=== PATIENT | female | born 1950 | race Caucasian/White ===

== ENCOUNTER 2021-05-29 00:31 | Day surgery (SDC) | payer MEDICARE, SELFPAY ==
[2021-05-17 14:55] VITALS: BMI 28.3
[2021-05-23 14:38] VITALS: BMI 28.3
[2021-05-29 11:46] VITALS: BP 138/85; PULSE 93; RESP 16; TEMP 36.6; O2SAT 100
--- NOTE | 2021-05-29 11:51 | P.PNAN_ITS ---
Anes - Initial Pre Proc Eval Procedure: Operation Date: 05/29/21 13:30 Proposed Procedures p Esophagogastroduodenoscopy & Colonoscopy - Willi Kasper MD Date/Time: 05/29/21 11:51 Surgeon: Wlili Kasper MD Pre Op Diagnosis: BRANDY Patient Data Age: 71 Gender: F Height: 1.8 m Weight: 92.5 kg Last Vital Signs Temp 36.6 C 05/29/21 11:46 Pulse 93 05/29/21 11:46 Resp 16 05/29/21 11:46 BP 138/85 05/29/21 11:46 Pulse Ox 100 05/29/21 11:46 Allergies Allergy/AdvReac Type Severity Reaction Status Date / Time No Known Allergies Allergy Verified 05/29/21 11:44 Home Medications Medication Instructions Recorded Confirmed Type Aspir-81 81 mg PO DAILY 05/17/21 05/29/21 History escitalopram oxalate 20 mg PO DAILY 05/17/21 05/29/21 History pantoprazole 40 mg PO DAILY 05/17/21 05/29/21 History propranolol 120 mg PO DAILY 05/17/21 05/29/21 History Patient hx anesthesia problems: none Family hx anesthesia problems: none Results Review: All pre-operative results and documents have been reviewed as part of the pre-operative evaluation. [facility] Past Medical History Medical History (Updated 05/29/21 @ 07:47 by Jimmy Santana DO) Anemia Depression Hyperlipidemia Social History Social History Smoking packs per day: 0.5 Smoking cigarettes per day: 10.0 Years smoked: 20 Smoking pack-years: 10.00 Smoking status: Former smoker Tobacco type: cigarettes Alcohol intake: current Drinks per week: 2 Living arrangements: with friend(s) Spiritual care concerns: No Anes - Eval Final PreProcedure Day of Procedure 05/29/21 11:51 Patient weight: overweight Heart: regular rate and rhythm Lungs: clear to auscultation and normal air movement Airway: Mallampati scale class II Neurological: alert and oriented Last oral intake: >/= 8 hours ASA classification: II Emergent: no Anesthetic plan: proceed Anesthesia type and monitoring: general GIVS and standard monitoring Results Review: All pre-operative results and documents have been reviewed as part of the pre-operative evaluation. Informed Consent: The patient's anesthetic plan and its attendant risks and benefits were discussed with the patient/family/POA. Questions were solicited and answers provided to the satisfaction of the patient/family/POA.
[2021-05-29] MEDS: LACTATED RINGERS 1,000 ML 150 ML IV CONT (11:56)
[2021-05-29] MEDS: BENZOCAINE (*SP) 60 ML SPRAY CAN (HURRICAINE) 1 SPRAY MUCOUS MEM (12:06)
--- NOTE | 2021-05-29 12:11 | WPDGICN ---
Assessment and Plan Assessment and plan (1) BRANDY (iron deficiency anemia): Code(s): D50.9 - Iron deficiency anemia, unspecified Status: Acute Assessment and Plan: Patient with newly identified iron deficiency anemia. Etiology unclear. Plan is for both colonoscopy an EGD to assess more thoroughly. Further recommendations will be given after endoscopy. (2) Occult blood in stools: Code(s): R19.5 - Other fecal abnormalities Status: Acute Assessment and Plan: Occult blood in stool suggest iron deficient anemia is coming from intestinal blood loss. Further recommendations will be given after endoscopy. GI Consult Note Consult date/time: 05/29/21 12:11 HPI: Britney Raymond is a 71 year old female Presents for GI endoscopy. Patient has a history of anemia with iron deficient indices identified on routine screening test. Subsequent stool was found to be occult positive for blood. Patient denies any obvious blood in her stools. She denies any abdominal pain. She does report occasional nocturnal heartburn that is relieved with Tums. This occurs intermittently over last 3 years. Patient denies any weight loss. She has had no bleeding. No blood in her urine. No bruises. No nose bleeds. Her family history is noncontributory. She does report many years ago had a colon polyp. Her family history is noncontributory. Review of Systems Review of Systems: All systems reviewed & are unremarkable except as noted in HPI and below PMFSH Past Medical History Medical History (Updated 05/29/21 @ 12:13 by Willi Kasper MD) Anemia Depression Hyperlipidemia Social History Social History Smoking packs per day: 0.5 Smoking cigarettes per day: 10.0 Years smoked: 20 Smoking pack-years: 10.00 Smoking status: Former smoker Tobacco type: cigarettes Alcohol intake: current Drinks per week: 2 Living arrangements: with friend(s) Spiritual care concerns: No Meds Home Medications and Allergies Home Medications Medication Instructions Recorded Confirmed Type Aspir-81 81 mg PO DAILY 05/17/21 05/29/21 History escitalopram oxalate 20 mg PO DAILY 05/17/21 05/29/21 History pantoprazole 40 mg PO DAILY 05/17/21 05/29/21 History propranolol 120 mg PO DAILY 05/17/21 05/29/21 History Allergies Allergy/AdvReac Type Severity Reaction Status Date / Time No Known Allergies Allergy Verified 05/29/21 11:44 Vital Signs Vital Signs - 24 hr 05/29/21 11:46 Temperature 97.9 F Pulse Rate 93 Respiratory Rate 16 Blood Pressure 138/85 Pulse Oximetry 100 Exam Narrative: Physical exam reveals patient be alert. Vital signs stable. HEENT exam is unremarkable. Patient is anicteric. Lungs are clear to auscultation and percussion. Heart is without murmur or extra sounds. Abdominal exam bowel sounds are present soft nontender with no organomegaly. Digital external rectal exam is normal.
--- NOTE | 2021-05-29 12:25 | SUR.OPER ---
EGD start 1207 end 1210, Colonoscopy start 1216 end 1224
[2021-05-29 12:28] VITALS: BP 103/61; PULSE 68; RESP 16; O2SAT 98
[2021-05-29 12:38] VITALS: BP 113/70; PULSE 73; RESP 27; O2SAT 100
[2021-05-29 12:48] VITALS: BP 125/79; PULSE 66; RESP 18; O2SAT 100
== END 2021-05-29 12:58 | disposition home or self-care (01) ==
PROVIDERS: PCP Internal Medicine; Visit Provider Internal Medicine Gastroenterology
PROC: 0DJ08ZZ Inspection of Upper Intestinal Tract, Via Natural or Artificial Opening Endoscopic (ICD-10-PCS; CPT 43235; principal; 2021-05-29 13:30)
DX: K92.1 Melena (principal); K64.8 Other hemorrhoids; K57.30 Diverticulosis of large intestine without perforation or abscess without bleeding; D50.9 Iron deficiency anemia, unspecified; E78.5 Hyperlipidemia, unspecified; F32.9 Major depressive disorder, single episode, unspecified; Z87.891 Personal history of nicotine dependence
CPT/HCPCS: 45378; 43239; 88305; J2704; J7120

== ENCOUNTER 2021-06-14 07:45 | Outpatient (CLI) | payer MEDICARE, SELFPAY ==
--- NOTE | ~2021-06-14 | XR_ITS ---
EXAMINATION: XR small bowel follow through DATE: 06/14/2021 09:43 INDICATION: Iron deficiency anemia TECHNIQUE: Research Chemist radiograph(s) of the abdomen was obtained. Oral contrast was administered, and sequ ential radiographs of the abdomen were obtained until oral contrast was noted to be in the proximal c olon. Spot fluoroscopic images of the small bowel were obtained. Fluoroscopy exposure time was 1.4 mi nutes. The DAP for this procedure was 11.966 Gycm2. COMPARISON: None. FINDINGS: Research Chemist radiograph is unremarkable. There are 20 degrees of lumbar levoscoliosis. Transit irina e from the stomach to proximal colon was approximately one hour. There is normal caliber and mucosal fold pattern throughout the small bowel. Terminal ileum is normal. No tethering or abnormal mass effe ct observed upon the small bowel with real-time fluoroscopy. IMPRESSION: 1. Unremarkable small bowel follow-through. Reviewed, dictated and finalized at location A. LE APPLICATION ARCHITECT
== END 2021-06-14 07:46 | disposition home or self-care (01) ==
LOC: ANHIMG 07:49
PROVIDERS: PCP Internal Medicine; Visit Provider Internal Medicine Gastroenterology
DX: D50.9 Iron deficiency anemia, unspecified (principal); R19.5 Other fecal abnormalities
CPT/HCPCS: 74250

== ENCOUNTER 2021-06-21 00:28 | Day surgery (SDC) | payer MEDICARE, SELFPAY ==
--- NOTE | 2021-06-14 15:28 | PC.NURSE ---
Report to the Outpatient Waiting Room, entrance under the green pavilion located off [facility], at time _1000 on date 06/21/21 . OR Time: _1200 . - You and your visitor will be asked a series of questions to screen for COVID 19 for your protection. - A mask is required within the hospital. Preoperative COVID Testing Requirements: No COVID Test needed if: (proof is required; if not received patient will have Rapid Test prior to entry) - Patient has received COVID Vaccine at least 14 days prior to procedure date or - Patient has positive COVID test result within last 90 days of surgery date. COVID Test needed if above criteria is not met If not COVID vaccinated a COVID test must be conducted within 72 hours of surgery and patient is asked to isolate self from time of testing until procedure. You will go to the [facility] for your COVID testing. The [facility] is located at the corner of [address] [facility]. You will only be called if COVID results are positive and your surgeon may reschedule your elective surgery date. Patients may have clear liquids (water, carbonated beverages, clear teas, apple juice) until 3 hours prior to surgery with a maximum of 20 ounces. - No food from midnight until time of surgery - Infants may have breast milk until 4 hours before surgery, formula 6 hours prior to surgery. - Children will be allowed to drink immediately following surgery. If applicable, please bring a bottle or sippy cup to assist with drinking. Juice, water, soda, and popsicles are readily available. For infants on formula, please bring formula the day of surgery. Pacifiers are allowed. Take the following medications with a SIP of water the morning of surgery: _PROPRANOLOL,ESCITALOPRAM Medications to discontinue per physician ____ASPIRIN AND NAPROXEN PER DR MCMANUS Date to take last dose Please no make-up, nail australian, hairspray, perfume, deodorant, or body powder the day of surgery. No jewelry (including any body piercings) or valuables the day of surgery, leave them at home. Please take a shower or bath the night before, or the morning of, surgery with an antibacterial soap. Wear comfortable, loose fitting clothing. Children are encouraged to wear pajamas. - Jewelry must be removed prior to entering the operating room. Rings and piercings that are not removed may be cut off. - The hospital will not accept responsibility for valuables. - Please leave all valuables, including medications, at home the day of surgery. If you are going home after surgery, a licensed cross country truck driver must drive you home. - NO public transportation without another adult. - We recommend that an adult stay with you for 24 hours following discharge. - We also recommend that you do not drive, make important decision, drink alcoholic beverages, or take any drugs that were not prescribed by your health care provider for at least 24 hours after your discharge time. For Pediatric surgeries, we recommend two adults accompany the child home (only one inside the building at this time). One visitor will be allowed to accompany the patient into the hospital. Patients visitor will be instructed to remain with patient at all times or leave the building. We will allow the visitor to come back to the postoperative area when patient is ready. Follow any additional instructions given to you from your surgeon. Telephone instructions given to _PATIENT and asked if any additional questions and then verbalized understanding. Patient advised to call surgeon office or pre surgery nurse liaison [phone] if any additional questions.
[2021-06-14 15:30] VITALS: BMI 28.5
[2021-06-21 10:09] VITALS: BMI 28.7
[2021-06-21 10:10] VITALS: BP 153/80; PULSE 62; RESP 20; TEMP 36.7; O2SAT 100
--- NOTE | 2021-06-21 10:23 | P.PNAN_ITS ---
Anes - Initial Pre Proc Eval Procedure: Operation Date: 06/21/21 12:00 Proposed Procedures p Excisional Biopsy of Sebaceous Cyst Posterior Neck - Rosa Box MD Date/Time: 06/21/21 10:23 Surgeon: Rosa Box MD Pre Op Diagnosis: Sebaceous Cyst Posterior Neck Patient Data Age: 71 Gender: F Height: 1.83 m Weight: 96.1 kg Last Vital Signs Temp 36.7 C 06/21/21 10:10 Pulse 62 06/21/21 10:10 Resp 20 06/21/21 10:10 BP 153/80 H 06/21/21 10:10 Pulse Ox 100 06/21/21 10:10 Allergies Allergy/AdvReac Type Severity Reaction Status Date / Time No Known Allergies Allergy Verified 06/21/21 09:58 Home Medications Medication Instructions Recorded Confirmed Type Aspir-81 81 mg PO DAILY 05/17/21 06/21/21 History escitalopram oxalate 20 mg PO DAILY 05/17/21 06/21/21 History propranolol 120 mg PO DAILY 05/17/21 06/21/21 History ferrous sulfate 325 mg (65 mg 325 mg PO BID #60 tablet 05/29/21 06/21/21 Rx iron) tablet naproxen 500 mg PO DAILY 06/14/21 06/21/21 History Patient hx anesthesia problems: none Family hx anesthesia problems: none Results Review: All pre-operative results and documents have been reviewed as part of the pre-operative evaluation. [facility] Past Medical History Medical History (Updated 06/21/21 @ 10:25 by Jimmy Santana DO) Anemia Depression Essential tremor Hyperlipidemia Surgical History Surgical History Hx of appendectomy Family History Family History Daughter Lupus Father Heart disease Cancer Sibling Heart attack Social History Social History Smoking packs per day: 0.5 Smoking cigarettes per day: 10.0 Years smoked: 10 Smoking pack-years: 5.00 Smoking status: Former smoker Tobacco type: cigarettes Smoking end date: 04/22/99 Alcohol intake: current Drinks per week: 2 Substance use type: does not use Living arrangements: other 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 Informed Consent: The patient's anesthetic plan and its attendant risks and benefits were discussed with the patient/family/POA. Questions were solicited and answers provided to the satisfaction of the patient/family/POA.
[2021-06-21 10:26] LABS: Hematocrit 38.3 % (37.0-47.0); Hemoglobin 11.6 g/dL (12.0-15.0)
[2021-06-21] MEDS: LACTATED RINGERS 1,000 ML 30 ML IV CONT (10:33)
--- NOTE | 2021-06-21 11:18 | SUR.PREOP ---
dr hu states no need to shave pt
--- NOTE | 2021-06-21 11:40 | WPDHPUPDATE1 ---
History and Physical Update Update Date/Time: 06/21/21 11:40 History and Physical has been reviewed, including an updated exam of the patient. There are NO changes in the patient's condition. Risks, benefits, and alternatives have been discussed and questions answered. Patient agrees to proceed with procedure.
[2021-06-21] MEDS: ceFAZolin 2 GM/D5W 50 ML 2 GM/50 ML BAG IVPB (11:44)
[2021-06-21] MEDS: BUPIVACAINE/EPINEPHRINE 0.25% 10 ML VIAL 20 ML INFILTRATE (12:02)
[2021-06-21 12:26] VITALS: BP 139/72; PULSE 62; RESP 14; O2SAT 100
--- NOTE | 2021-06-21 12:27 | W.PM.PROC2 ---
Procedure Note - Detailed Date of Procedure 06/21/21 Pre-op Diagnosis Sebaceous Cyst Posterior Neck Post-op Diagnosis same Procedure Performed Excisional biopsy posterior neck cyst measuring approximately 3 x 3 cm Surgeon Rosa Box MD Anesthesia MAC and local Indications 71-year-old female presenting to the office with a enlarging posterior neck cyst Findings 3 x 3 cm posterior neck cyst likely sebaceous cyst Description of Procedure The patient was taken to the operating room and placed in the lateral position. After adequate induction of MAC anesthesia, the patient was prepped and draped in the normal sterile fashion. A time-out was then done to verify the patient's identity, as well as the procedure being performed. I began by localizing the area in and around the cyst. The area measured approximately 3 x 3 cm. I then made an elliptical incision over the cyst taking a piece of dermis over the cyst. The cyst was noted to be contained within the subcutaneous tissue. There was some noted sebaceous material within the cyst. Upon dissection of the cyst, there was noted to be areas of small perforations in the cyst wall. The cyst was then removed in full and will be sent to pathology for further review. I then gained hemostasis in the cavity with the Bovie cautery. I then washed out the cavity, noting no signs or symptoms of infection. We then closed the subcutaneous tissue with 3-0 Vicryl suture. The skin was then closed with 4-0 Monocryl subcuticular suture. The wound was then covered with Dermabond. The patient tolerated the procedure well and was alert and awake in the operating room postoperatively. She will be sent to the recovery room in stable condition. Estimated Blood Loss 5 Drains No Packing No Pathology yes Complications No immediate complications Condition stable Disposition PACU
[2021-06-21 12:50] VITALS: BP 145/73; PULSE 51; RESP 16; O2SAT 98
[2021-06-21 13:15] VITALS: BP 149/77; PULSE 52; RESP 16
== END 2021-06-21 13:35 | disposition home or self-care (01) ==
PROVIDERS: PCP Internal Medicine; Visit Provider Surgery
PROC: (CPT 11426; principal; 2021-06-21 12:00)
DX: L72.3 Sebaceous cyst (principal); D64.9 Anemia, unspecified; E78.5 Hyperlipidemia, unspecified; F32.9 Major depressive disorder, single episode, unspecified; G25.0 Essential tremor; Z87.891 Personal history of nicotine dependence
CPT/HCPCS: 11426; 12042; 36415; 85014; 85018; 88304; 88305; J0690; J2250; J2405; J2704; J3010; J7120

== ENCOUNTER 2023-02-25 07:00 | Outpatient (NON) | payer MEDICARE, SELFPAY | END 2023-02-25 07:01 | disposition home or self-care (01) | LOC: ANHLAB 02-27 12:44 | PROVIDERS: PCP Family Medicine; Visit Provider Nurse Practitioner | DX: C44.629 Squamous cell carcinoma of skin of left upper limb, including shoulder (principal) | CPT/HCPCS: 88305 ==

== ENCOUNTER 2023-03-27 11:52 | Outpatient (NON) | payer MEDICARE, SELFPAY | END 2023-03-27 11:53 | disposition home or self-care (01) | PROVIDERS: PCP Family Medicine; Visit Provider Nurse Practitioner | DX: C44.320 Squamous cell carcinoma of skin of unspecified parts of face (principal); L82.1 Other seborrheic keratosis | CPT/HCPCS: 88305 ==

== ENCOUNTER 2024-01-24 14:35 | Outpatient (CLI) | payer MEDICARE, SELFPAY ==
[2024-01-24 15:05] LABS: CRP < 0.5 mg/dL (<1.0)
== END 2024-01-24 14:36 | disposition home or self-care (01) ==
PROVIDERS: PCP Physician Assistant Medical; Visit Provider Nurse Practitioner Family
DX: R19.7 Diarrhea, unspecified (principal); R11.10 Vomiting, unspecified; R10.11 Right upper quadrant pain
CPT/HCPCS: 36415; 86140

== ENCOUNTER 2024-01-25 10:04 | Outpatient (CLI) | payer MEDICARE, SELFPAY ==
[2024-01-29 03:49] LABS: Immunoglobulin A 181 mg/dL (70-320); TTG IGA AB <1.0 U/mL
[2024-01-31 18:13] LABS: Calprotectin, Stool 68 mcg/g
[2024-02-04 01:03] LABS: Pancreatic Elastase, Stool >500 mcg/g
== END 2024-01-25 10:05 | disposition home or self-care (01) ==
PROVIDERS: PCP Physician Assistant Medical; Visit Provider Nurse Practitioner Family
DX: R19.7 Diarrhea, unspecified (principal); R11.10 Vomiting, unspecified; R10.11 Right upper quadrant pain
CPT/HCPCS: 36415; 82653; 82784; 83993; 86364

== ENCOUNTER 2024-02-07 08:38 | Outpatient (CLI) | payer MEDICARE, SELFPAY ==
--- NOTE | ~2024-02-07 | US_ITS ---
US abdomen limited INDICATION: Right upper quadrant pain PROCEDURE: Realtime right upper abdominal ultrasound. COMPARISON: No prior studies for comparison. FINDINGS: The pancreas is normal without focal mass or pancreatic ductal dilation. Liver echotexture is normal without focal mass or intrahepatic biliary dilatation. There is normal directional flow i n the portal vein. The gallbladder is normal without stones, gallbladder wall thickening or pericholecystic fluid. Comm on bile duct measures 5 mm. No sonographic Urias's sign. IMPRESSION: 1: Normal limited abdominal ultrasound. Reviewed, dictated and finalized at location B.
== END 2024-02-07 08:39 | disposition home or self-care (01) ==
PROVIDERS: PCP Physician Assistant Medical; Visit Provider Nurse Practitioner Family
DX: R10.11 Right upper quadrant pain (principal); R11.10 Vomiting, unspecified; R19.7 Diarrhea, unspecified
CPT/HCPCS: 76705

== ENCOUNTER 2024-02-13 08:33 | Outpatient (CLI) | payer MEDICARE, SELFPAY ==
--- NOTE | ~2024-02-13 | NM_ITS ---
EXAMINATION: NM hepatobiliary wo pharm DATE: 02/13/2024 12:26 INDICATION: Right upper quadrant abdominal pain. COMPARISON: Ultrasound 02/07/2024 TECHNIQUE: 5 mCi Tc-99m mebrofenin (Choletec) was administered intravenously. Scintigraphic images o f the abdomen were obtained for one hour. Then, the patient drank 8 oz Ensure, and imaging was contin ued for 60 minutes. FINDINGS: There is normal clearance of radiotracer from the blood pool. There is homogeneous tracer u ptake by the liver. Activity progresses to the bowel and gallbladder. Gallbladder ejection fraction (GBEF) was 65%. Note that with this technique, normal GBEF >= 33%. IMPRESSION: 1. Normal hepatobiliary scintigraphy. Reviewed, dictated and finalized at location A.
== END 2024-02-13 08:34 | disposition home or self-care (01) ==
PROVIDERS: PCP Physician Assistant Medical; Visit Provider Nurse Practitioner Family
DX: R10.11 Right upper quadrant pain (principal); R11.11 Vomiting without nausea
CPT/HCPCS: 78226; A9537

== ENCOUNTER 2025-02-01 10:35 | Outpatient (CLI) | payer MEDICARE, SELFPAY ==
--- NOTE | ~2025-02-01 | US_ITS ---
ULTRASOUND ABDOMEN LIMITED (RIGHT UPPER QUADRANT) Clinical History: elevated liver enzymes Comparison: Right upper quadrant ultrasound 02/07/2024 HIDA scan and 10/08/2023 Technique: Right upper quadrant sonography Findings: Liver: Normal size. Echogenic. No intrahepatic biliary ductal dilatation. Normal hepatopedal flow main portal vein. Common Duct: Normal caliber. 5 mm. Gallbladder: No stones. No wall thickening. No pericholecystic fluid. Pancreas: Unremarkable. Right kidney: Unremarkable but only a single image. Retrohepatic IVC: Unremarkable. IMPRESSION: 1. No acute findings. Reviewed, dictated and finalized at location R. IMPRESSION: 1. No acute findings.
--- OUTSIDE RECORDS SUMMARY | 2025-02-01 11:46 | XMS_ITS | Encounter Summary ---
Author Organization [facility] Address [address] [place] [address] Care Team Providers Care Hydroelectric Plant Maintainer Name Role Phone Jose Guadalupe Wu MD Primary Care Provider [phone] Encounter Details Date Type Department Care Team (Latest Contact Info) Description 10/10/2006 Outpatient Historical [facility] Jose Guadalupe English MD [address] [facility] [address] [place] [id number] Abnormal Mammogram, Unspecified (Primary Dx) Social History Tobacco Use Types Packs/Day Years Used Date Smoking Tobacco: Never Assessed Comments Unknown Sex and Gender Information Value Date Recorded Sex Assigned at Not on file 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
--- OUTSIDE RECORDS SUMMARY | 2025-02-01 11:46 | XMS_ITS | Encounter Summary ---
Author Organization [facility] Address [address] [place] [address] Care Team Providers Care Internal Control Specialist Name Role Phone Jose Guadalupe Wu MD Primary Care Provider [phone] Encounter Details Date Type Department Care Team (Latest Contact Info) Description 10/31/2005 Outpatient Historical HIS [facility] Adame, Adalberto Zabala MD [address] [place] [address] [address] [place]O [place]ILA [phone] Other Specified Disorder of Breast (Primary Dx) Social History Tobacco Use Types Packs/Day Years Used Date Smoking Tobacco: Never Assessed Comments Unknown Sex and Gender Information Value Date Recorded Sex Assigned at Not on file 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
--- OUTSIDE RECORDS SUMMARY | 2025-02-01 11:46 | XMS_ITS | Encounter Summary ---
Author Organization [facility] Address [address] [place] [address] Care Team Providers Care Ornament Stapler Name Role Phone Jose Guadalupe Jones MD Primary Care Provider [phone] Encounter Details Date Type Department Care Team (Latest Contact Info) Description 11/30/2008 Outpatient Historical [facility] Jose Guadalupe English MD [facility] 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 [address] [place], [place] [address] Admit Date: 11/30/2008 BRITNEY LARA Sex: F Admit Prov: JOSE GUADALUPE JONES Date: 1950 Primary Care Prov: JOSE GUADALUPE JONES CMRN: [id number] Room: [facility] SSN: [id number] IMAGING SERVICES Ordering Prov: JOSE GUADALUPE JONES Accession Number: [id number] Interpretation BILATERAL FULL FIELD DIGITAL DIAGNOSTIC MAMMOGRAMS WITH COMPUTER AIDED DETECTION RIGHT BREAST ULTRASOUND DATE: 11/30/2008 HISTORY: Fibrocystic changes. TECHNIQUE: Bilateral full field digital diagnostic mammograms were obtained. CAD was utilized. Comparison is made with previous studies dated October 2007, September 2006, and September 2003. BREAST COMPOSITION: Scattered fibroglandular densities. FINDINGS: Within the inner aspect of the right breast, a 7 mm partially circumscribed, partially obscured mass is identified. An ultrasound of this is recommended. No other dominant masses, areas of asymmetry, or suspicious clustered microcalcifications are identified within either breast. The CAD system detects no other significant abnormalities. Right breast ultrasound was performed. At approximately the 2:00 position, an anechoic lesion is identified which measures 6 x 6 mm in size. This does have slightly irregular margins and appears to disrupt a linear area of connective tissue. For this reason and due to the fact that it is within the inner aspect of the right breast, an ultrasound-guided core biopsy is recommended. OVERALL ASSESSMENT: BI-RADS Category: 4A. Suspicious findings, low suspicion. RECOMMENDATION: It is recommended the patient have an ultrasound-guided core biopsy of the mass within the medial aspect of the right breast. Dictated by: FABBY SHEEHAN Electronically signed by: FABBY SHEEHAN 11/30/2008 16:52 Transcribed: 11/30/2008 13:55 DKT Procedure Note Fabby Sheehan - 11/30/2008 [facility] [address] [place], [place] [address] Admit Date: 11/30/2008 BRITNEY LARA Sex: F Admit Prov: JOSE GUADALUPE JONES Date:1950 Primary Care Prov: JOSE GUADALUPE JONES CMRN: [id number] Room: [facility] SSN: [id number] IMAGING SERVICES Ordering Prov: JOSE GUADALUPE JONES Interpretation BILATERAL FULL FIELD DIGITAL DIAGNOSTIC MAMMOGRAMS WITH COMPUTERAIDED DETECTION RIGHT BREAST ULTRASOUND DATE: 11/30/2008 HISTORY: Fibrocystic changes. TECHNIQUE: Bilateral full field digital diagnostic mammograms were obtained. CAD was utilized. Comparison is made with previous studiesdated October 2007, September 2006, and September 2003. BREAST COMPOSITION: Scattered fibroglandular densities. FINDINGS: Within the inner aspect of the right breast, a 7 mmpartially circumscribed, partially obscured mass is identified. An ultrasoundof this is recommended. No other dominant masses, areas of asymmetry, orsuspicious clustered microcalcifications are identified within either breast.The CAD system detects no other significant abnormalities. Right breast ultrasound was performed. At approximately the 2:00position, an anechoic lesion is identified which measures 6 x 6 mm in size.This does have slightly irregular margins and appears to disrupt a linear areaof connective tissue. For this reason and due to the fact that it iswithin the inner aspect of the right breast, an ultrasound-guided corebiopsy is recommended. OVERALL ASSESSMENT: BI-RADS Category: 4A. Suspicious findings, low suspicion. RECOMMENDATION: It is recommended the patient have anultrasound-guided core biopsy of the mass within the medial aspect of the rightbreast. Dictated by: FABBY SHEEHAN Electronically signed by: FABBY SHEEHAN 11/30/2008 16:52 Transcribed: 11/30/2008 13:55 DKT us Jose Guadalupe Jones MD ORDERABLES Final Result * MAMMO DIGITAL DIAG BILAT (11/30/2008 9:56 AM CDT) Anatomical Region Laterality Modality Breast Bilateral Other 11/30/2008 9:56 AM CDT Narrative 11/30/2008 4:54 PM CDT [address] [address] Admit Date: 11/30/2008 BRITNEY LARA Sex: F Admit Prov: JOSE GUADALUPE JONES Date: 1950 Primary Care Prov: JOSE GUADALUPE JONES CMRN: [id number] Room: [facility] SSN: [id number] IMAGING SERVICES Ordering Prov: JOSE GUADALUPE JONES Accession Number: [id number] Interpretation BILATERAL FULL FIELD DIGITAL DIAGNOSTIC MAMMOGRAMS WITH COMPUTER AIDED DETECTION RIGHT BREAST ULTRASOUND DATE: 11/30/2008 HISTORY: Fibrocystic changes. TECHNIQUE: Bilateral full field digital diagnostic mammograms were obtained. CAD was utilized. Comparison is made with previous studies dated October 2007, September 2006, and September 2003. BREAST COMPOSITION: Scattered fibroglandular densities. FINDINGS: Within the inner aspect of the right breast, a 7 mm partially circumscribed, partially obscured mass is identified. An ultrasound of this is recommended. No other dominant masses, areas of asymmetry, or suspicious clustered microcalcifications are identified within either breast. The CAD system detects no other significant abnormalities. Right breast ultrasound was performed. At approximately the 2:00 position, an anechoic lesion is identified which measures 6 x 6 mm in size. This does have slightly irregular margins and appears to disrupt a linear area of connective tissue. For this reason and due to the fact that it is within the inner aspect of the right breast, an ultrasound-guided core biopsy is recommended. OVERALL ASSESSMENT: BI-RADS Category: 4A. Suspicious findings, low suspicion. RECOMMENDATION: It is recommended the patient have an ultrasound-guided core biopsy of the mass within the medial aspect of the right breast. Assessment BIRADS: 4A-Suspicious abnormality, biopsy should be considered- Low suspicion Recommendation: Biopsy should be considered Dictated by: FABBY SHEEHAN Electronically signed by: FABBY SHEEHAN 11/30/2008 16:52 Transcribed: 11/30/2008 13:54 DKT Procedure Note Fabby Sheehan - 11/30/[address] [address] Admit Date: 11/30/2008 BRITNEY LARA Sex: F Admit Prov: JOSE GUADALUPE JONES Date:1950 Primary Care Prov: JOSE GUADALUPE JONES CMRN: [id number] Room: [facility] SSN: [id number] IMAGING SERVICES Ordering Prov: JOSE GUADALUPE JONES Interpretation BILATERAL FULL FIELD DIGITAL DIAGNOSTIC MAMMOGRAMS WITH COMPUTERAIDED DETECTION RIGHT BREAST ULTRASOUND DATE: 11/30/2008 HISTORY: Fibrocystic changes. TECHNIQUE: Bilateral full field digital diagnostic mammograms were obtained. CAD was utilized. Comparison is made with previous studiesdated October 2007, September 2006, and September 2003. BREAST COMPOSITION: Scattered fibroglandular densities. FINDINGS: Within the inner aspect of the right breast, a 7 mmpartially circumscribed, partially obscured mass is identified. An ultrasoundof this is recommended. No other dominant masses, areas of asymmetry, orsuspicious clustered microcalcifications are identified within either breast.The CAD system detects no other significant abnormalities. Right breast ultrasound was performed. At approximately the 2:00position, an anechoic lesion is identified which measures 6 x 6 mm in size.This does have slightly irregular margins and appears to disrupt a linear areaof connective tissue. For this reason and due to the fact that it iswithin the inner aspect of the right breast, an ultrasound-guided corebiopsy is recommended. OVERALL ASSESSMENT: BI-RADS Category: 4A. Suspicious findings, low suspicion. RECOMMENDATION: It is recommended the patient have anultrasound-guided core biopsy of the mass within the medial aspect of the rightbreast. Assessment BIRADS: 4A-Suspicious abnormality, biopsy should beconsidered- Low suspicion Recommendation: Biopsy should be considered Dictated by: FABBY SHEEHAN Electronically signed by: FABBY SHEEHAN 11/30/2008 16:52 Transcribed: 11/30/2008 13:54 DKT us Jose Guadalupe Jones MD MAMMO ORDERABLES Final Result documented in this encounter Visit Diagnoses Diagnosis Other screening mammogram Abnormal mammogram, unspecified documented in this encounter Care Teams Ornament Stapler Relationship Specialty Start Date End Date Jose Guadalupe Jones MD [address] [place] [phone] PCP - General 10/31/05 02/27/22 documented as of this encounter
--- OUTSIDE RECORDS SUMMARY | 2025-02-01 11:46 | XMS_ITS | Encounter Summary ---
Author Organization [facility] Address [address] [place] [address] Care Team Providers Care Brim And Crown Presser Name Role Phone Jose Guadalupe Jones MD Primary Care Provider [phone] Encounter Details Date Type Department Care Team (Latest Contact Info) Description 10/27/2007 Outpatient Historical [facility] Jose Guadalupe English MD [facility] [address] [place] [phone] Abnormal Mammogram, Unspecified Social History Tobacco Use Types Packs/Day Years Used Date Smoking Tobacco: Never Assessed Comments Unknown Sex and Gender Information Value Date Recorded Sex Assigned at Not on file 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 Gender Identity Not on file Sexual Orientation Not on file documented as of this encounter Plan of Treatment Not on file documented as of this encounter Procedures Procedure Name Priority Date/Time Associated Diagnosis Comments MAMMO DIAGNOSTIC BILATERAL W OR WO CAD Routine 10/27/2007 11:07 AM CDT documented in this encounter Results * MAMMO DIGITAL DIAG BILAT (10/27/2007 11:07 AM CDT) Anatomical Region Laterality Modality Breast Bilateral Other 10/27/2007 11:0 7 AM CDT Narrative 10/27/2007 12:42 PM CDT [place] [place], [place] [address] Admit Date: 10/27/2007 BRITNEY LARA Sex: F Admit Prov: JOSE GUADALUPE JONES Date: 1950 Primary Care Prov: JOSE GUADALUPE JONES CMRN: [id number] Room: [facility] N: [id number] IMAGING SERVICES Ordering Prov: JOSE GUADALUPE JONES Accession Number: [id number] Interpretation BILATERAL DIAGNOSTIC DIGITAL MAMMOGRAMS WITH COMPUTER ASSISTED DIAGNOSIS, 10/27/2007 Reason For Examination: Fibrocystic change. History of benign breast nodules and cyst aspirations. Findings: The parenchyma is moderately dense bilaterally. There is no spiculation, malignant calcification or other sign of malignancy. Small, benign-appearing nodules are seen in each breast. These are larger and more numerous on the left. Since 10/10/2006, there has been no significant change. The CAD system was utilized. Conclusion: No mammographic evidence of malignancy. Benign nodules bilaterally. No significant change since 10/10/2006. Recommendations: The patient should resume screening mammography in October 2008. Assessment BIRADS: 2-Benign finding Recommendation: Normal interval follow-up Dictated by: JIMMY COATES Electronically signed by: JIMMY COATES 10/27/2007 12:41 Transcribed: 10/27/2007 12:38 DKT Procedure Note Jimmy Coates MD - 10/27/[address] [address] Admit Date: 10/27/2007 BRITNEY LARA Sex: F Admit Prov: JOSE GUADALUPE JONES Date:1950 Primary Care Prov: JOSE GUADALUPE JONES CMRN: [id number] Room: [facility] SSN: [id number] IMAGING SERVICES Ordering Prov: JOSE GUADALUPE JONES Interpretation BILATERAL DIAGNOSTIC DIGITAL MAMMOGRAMS WITH COMPUTER ASSISTEDDIAGNOSIS, 10/27/2007 Reason For Examination: Fibrocystic change. History of benignbreast nodules and cyst aspirations. Findings: The parenchyma is moderately dense bilaterally. There isno spiculation, malignant calcification or other sign of malignancy.Small, benign-appearing nodules are seen in each breast. These are largerand more numerous on the left. Since 10/10/2006, there has been no significant change. The CAD system was utilized. Conclusion: No mammographic evidence of malignancy. Benign nodules bilaterally. No significant change since 10/10/2006. Recommendations: The patient should resume screening mammography inJuly 2008. Assessment BIRADS: 2-Benign finding Recommendation: Normal interval follow-up Dictated by: JIMMY COATES Electronically signed by: JIMMY COATES 10/27/2007 12:41 Transcribed: 10/27/2007 12:38 DKT Jose Guadalupe Jones MD MAMMO ORDERABLES Final Result documented in this encounter Visit Diagnoses Diagnosis Abnormal mammogram, unspecified documented in this encounter Care Teams Brim And Crown Presser Relationship Specialty Start Date End Date Jose Guadalupe Jones MD [address] [place] [phone] PCP - General 10/31/05 02/27/22 documented as of this encounter
--- OUTSIDE RECORDS SUMMARY | 2025-02-01 11:46 | XMS_ITS | Encounter Summary ---
Author Organization [facility] Address [address] [place] [address] Care Team Providers Care Cena Name Role Phone Jose Guadalupe Wu MD Primary Care Provider [phone] Encounter Details Date Type Department Care Team (Latest Contact Info) Description 10/17/2004 Outpatient Historical [facility] Adame, Adalberto Zabala MD [address] [facility] [address] [place] [phone] FOLLOW-UP EXAM NEC (Primary Dx) Social History Tobacco Use Types Packs/Day Years Used Date Smoking Tobacco: Never Assessed Comments Unknown Sex and Gender Information Value Date Recorded Sex Assigned at Not on file Legal Sex Female 5:13 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
--- OUTSIDE RECORDS SUMMARY | 2025-02-01 11:46 | XMS_ITS | Clinical Summary ---
Author Organization [facility] Address [address] [place] [address] Care Team Providers Care Client Services Assistant Name Role Phone Unavailable Primary Care Provider Unavailabl e Social History Tobacco Use Types Packs/Day Years Used Date Smoking Tobacco: Never Assessed Comments Unknown Sex and Gender Information Value Date Recorded Sex Assigned at Not on file Legal Sex Female 7:19 PM CDT Gender Identity Not on file Sexual Orientation Not on file Last Filed Vital Signs Vital Sign Reading Time Taken Comments Blood Pressure 122/76 09/27/2012 5:16 PM CDT Pulse 80 09/27/2012 5:16 PM CDT Temperature - - Respiratory Rate - - Oxygen Saturation - - Inhaled Oxygen Concentration - - Weight 86.2 kg (190 lb) 09/27/2012 5:16 PM CDT Height - - Body Mass Index - - Plan of Treatment Health Maintenance Due Date Last Done Comments Colorectal Cancer Screening Colonoscopy (10 Years) 1950 Hepatitis C 1970 DTaP, Tdap and Td Vaccines ( 1 - Tdap) 1971 Mammogram Screening 1992 Pneumococcal Vaccine: 50+ Ye ars (1 of 1 - PCV) 2002 Zoster Vaccines (1 of 2) 2002 Dexa Scan (General) 2017 COVID-19 Vaccine ( - 2023-2 5 season) 2024 Influenza Adult (#1) 2025 RSV Immunization or 60+ Years (1 - 1-dose 75+ series) 2027 Meningococcal B Vaccine Aged Out No l onger eligible based on patient's age to complete this topic Meningococcal Vaccine Aged Out No chase arturo eligible based on patient's age to complete this topic RSV Immunizations Under 20 Months Aged Out No longer eligible based on patient's age to complete this topic
--- OUTSIDE RECORDS SUMMARY | 2025-02-01 11:46 | XMS_ITS | Encounter Summary ---
Author Organization [facility] Address [address] [place] [address] Care Team Providers Care Flexographic Printing Press Operator Name Role Phone Jose Guadalupe Wu MD Primary Care Provider [phone] Encounter Details Date Type Department Care Team (Latest Contact Info) Description 10/29/2003 Outpatient Historical HIS [facility] Adame, Adalberto Zabala MD [address] [place] [address] [address] [place] [phone] SCREENING MAMM-MAILG NEOPL-OTHER (Primary Dx) Social History Tobacco Use Types Packs/Day Years Used Date Smoking Tobacco: Never Assessed Comments Unknown Sex and Gender Information Value Date Recorded Sex Assigned at Not on file Legal Sex Female 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
--- OUTSIDE RECORDS SUMMARY | 2025-02-01 11:46 | XMS_ITS | Encounter Summary ---
Author Organization [facility] Address [address] [place] [address] Care Team Providers Care Yard Person Name Role Phone Jose Guadalupe Wu MD Primary Care Provider [phone] Encounter Details Date Type Department Care Team (Late st Contact Info) Description 12/08/2002 Inpatient Historical [facility] Maribell Krishna MD [address] 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
--- OUTSIDE RECORDS SUMMARY | 2025-02-01 11:46 | XMS_ITS | Encounter Summary ---
Author Organization [facility] Address [address] [place] [address] Care Team Providers Care Frame Expander Name Role Phone Jose Guadalupe Wu MD Primary Care Provider [phone] Encounter Details Date Type Department Care Team (Latest Contact Info) Description 11/09/2003 Outpatient Historical [facility] Adame, Adalberto Zabala MD [address] [place] [address] [address] [place] [phone] UNSP ABNORMAL MAMMOGRAM (Primary Dx) Social History Tobacco Use Types Packs/Day Years Used Date Smoking Tobacco: Never Assessed Comments Unknown Sex and Gender Information Value Date Recorded Sex Assigned at Not on file 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
--- OUTSIDE RECORDS SUMMARY | 2025-02-01 11:47 | XMS_ITS | Encounter Summary ---
Author Organization [facility] Address [address] [place] [address] Care Team Providers Care Wheel Installer Name Role Phone Unavailable Primary Care Provider Unavailabl e Reason for Visit * Reason Comments Med Refill Encounter Details Date Type Department Care Team (Late st Contact Info) Description 01/30/2025 Refill [facility] Orthopedics - [facility] [address] [facility] [address] [place] [address] [place] [address] [facility] [address] [place] [address] Social History Tobacco Use Types Packs/Day Years Used Date Smoking Tobacco: Never Smokeless Tobacco: Never Comments No Sex and Gender Information Value Date Recorded Sex Assigned at Not on file Legal Sex Female 5:13 AM ABSENCE MANAGEMENT CONSULTANT Gender Identity Not on file Sexual Orientation Not on file Occupation Industry Job Start Date Job End Date Not on file Not on file Not on file Not on file documented as of this encounter Plan of Treatment Not on file documented as of this encounter Visit Diagnoses Not on filedocumented in this encounter
--- OUTSIDE RECORDS SUMMARY | 2025-02-01 11:47 | XMS_ITS | Patient Health Record ---
Author Organization [facility] Urgent Care - [facility] Address [address] [place] [address] Care Team Providers Care Bonding Molder Name Role Phone BrunosnehaChrissy ingram Unavailable Unavailable Allergies No Known Allergies Reason For Referral No Information Medications Medication SIG (Take, Route, Frequency, Duration) Notes Start Date End Date Status naproxen Active escitalopram Active propranolol Active Plan Of Treatment No Information Insurance Providers Payer Name Payer Address Payer Phone Subscriber Number Group Number Insured Name Patient Relationship to Insured Coverage Start Date Coverage End Date [facility] /Medicare Complete/A ANKUR [address] [address] [place] [address] [id number] August Britney Self - patient is the insured Medicare [address] [address] [place] [address] [phone] [id number] August, Britney Self - patient is the insured Medical (General) History Medical History History ICD Code Anxiety Surgical History Surgery Date(Month/Year) Appendectomy
--- OUTSIDE RECORDS SUMMARY | 2025-02-01 11:47 | XMS_ITS | Clinical Summary ---
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 Activ e escitalopram oxalate, bulk, 100 % Powder escitalopram Acti ve propranoloL (INDERAL LA) 120 mg Long Acting 24 hour capsule propranolol Active Lumigan 0.01 % solution Active dicyclomine (BENTYL) 10 mg capsule Take 10 mg by mouth. 08/14/19 24 Active FeroSuL 325 mg (65 mg iron) tablet Take 325 mg by mouth daily. Active furosemide (LASIX) 20 mg tablet Take 20 mg by mouth. 05/26/19 24 Active hyoscyamine sulfate 0.125 mg tablet Take 1 Tablet by mouth every 6 hours. 04/02/20 24 Active prednisoLONE acetate (PRED FORTE) 1 % suspension INSTILL 1 DROP INTO THE RIGHT EYE TWICE A DAY FOR 1 WEEK Active vit C/E/Zn/coppr/l utein/zeaxan (PRESERVISION AREDS-2 ORAL) Active diclofenac sodium (VOLTAREN) 75 mg Tablet, Delayed Release (E.C.) TAKE 1 TABLET BY MOUTH TWICE A DAY 60 Tablet 3 02/02/20 25 Active diclofenac sodium (VOLTAREN) 75 mg Tablet, Delayed Release (E.C.) TAKE 1 TABLET BY MOUTH TWICE A DAY 60 Tablet 3 09/16/19 25 025 Discontinued Active Problems No known active problems Encounters Date Type Department Care Team Description 01/30/2025 Refill [facility] Orthoped[facility] - [facility] [id number] [place] [address] Jimmy Urban MD 01/12/2025 External Device Data [facility]STRACTION Provider, Abstract 01/05/2025 External Device Data [facility] Provider, Abstract 11/04/2024 External Device Data [facility] Provider, Abstract 11/03/2024 External Device Data [facility] Provider, Abstract from Last 3 Months Family History Medical History Relation Name Comments Breast Cancer Neg Hx Ovarian Cancer Neg Hx Social History Tobacco Use Types Packs/Day Years Used Date Smoking Tobacco: Never Smokeless Tobacco: Never Comments No Sex and Gender Information Value Date Recorded Sex Assigned at Not on file Legal Sex Female 5:13 AM [employer]IDWAY WORK[employer] Gender Identity Not on file Sexual Orientation Not on file Occupation Industry Job Start Date Job End Date Not on file Not on file Not on file Not on file Last Filed Vital Signs Vital Sign Reading Time Taken Comments Blood Pressure - - Pulse - - Temperature - - Respiratory Rate - - Oxygen Saturation - - Inhaled Oxygen Concentration - - Weight 91.6 kg (202 lb) 06/01/2024 2:07 PM [employer]IDWAY WORK[employer] Height 182.9 cm (6') 06/01/2024 2:07 PM [employer] WORK[employer] Body Mass Index 27.4 06/01/2024 2:07 PM [employer]AY WORKER Plan of Treatment Health Maintenance Due Date Last Done Comments DTAP/TDAP/TD VACCINES (1 - Tdap) 1971 COLORECTAL SCREENING 1997 Colorectal Cancer Screening 1997 FIT-DNA Q 3 years 1997 FIT/FOBT Q 1 year 1997 Flex Sig/CT Colonography Q 5 years 1997 PNEUMOCOCCAL VACCINE 50+ YEA RS (1 of 1 - PCV) 2002 ZOSTER VACCINE (1 of 2) 2002 OSTEOPOROSIS SCREENING 2017 INFLUENZA VACCINE (#1) 2024 BREAST CANCER SCREENING 06/05/2025 06/05/19, 03/28/2023, 03/07/2022, Additional history exists RSV VACCINE (60+ or ) (1 - 1-dose 75+ series) 2027 Procedures Procedure Name Priority Date/Time Associated Diagnosis Comments MAMMO 3D DULCE MARIA SCREEN BILAT W OR WO CAD Routine 06/05/2024 9:59 AM 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 Routine screening mammography is recommended in one year. OVERALL FINAL ASSESSMENT: BI-RADS CATEGORY 1 - Negative DICTATION LOCATION: [facility] 06/05/2024 10:18 AM SKIDWAY WORKER EXAMINATION: BILATERAL SCREENING DIGITAL MAMMOGRAPHY WITH TOMOSYNTHESIS AND CAD DATE: 06/05/2024 9:59 AM HISTORY: Routine screening mammography. COMPARISON: Mammography with dates ranging from 03/28/2023 to 10/13/2018. TECHNIQUE: A bilateral screening mammogram was performed. Low-dose full-field digital breast tomosynthesis examination was performed with 2D and 3D acquisitions. Examination is read in conjunction with computer aided detection. BREAST COMPOSITION: There are scattered areas of fibroglandular density. FINDINGS: There are no suspicious masses, suspicious calcifications, or other suspicious findings in either breast. There has been no suspicious interval change. Computer aided detection was used in the interpretation of this examination. Kenzie Hayden MD MAMMO ORDERABLES Final Resu lt from Last 3 Months or Most Recently Relevant to Health Maintenance Insurance [employer] PPO MCR
--- OUTSIDE RECORDS SUMMARY | 2025-02-01 11:47 | XMS_ITS | Encounter Summary ---
Author Organization [facility] Address [address] [place] [address] Care Team Providers Care Manager Multicultural Name Role Phone Jose Guadalupe Jones MD Primary Care Provider [phone] Encounter Details Date Type Department Care Team (Latest Contact Info) Description 12/01/2008 Outpatient Historical [facility] DOCTOR, NOT ON STAFF Sandie Leon MD [address] [facility] 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 Gender Identity Not on file Sexual Orientation Not on file documented as of this encounter Plan of Treatment Not on file documented as of this encounter Procedures Procedure Name Priority Date/Time Associated Diagnosis Comments PATHOLOGY Routine 12/01/2008 5:00 PM CDT MAMMO DIAGNOSTIC UNI RIGHT W OR WO CAD Routine 12/01/2008 2:33 PM CDT XR CONSULTATION Routine 12/01/2008 2:33 PM CDT US GUIDE NEEDLE PLACEMENT Routine 12/01/2008 2:32 PM CDT documented in this encounter Results * PATHOLOGY (12/01/2008 5:00 PM CDT) FINAL REPORT [facility] [address] [place], [place] [address] Patient: BRITNEY LARA : 1950 Procedure Date: 12/01/2008 Accession Date: 12/02/2008 Case No: [id number] Ordering Dr: SANDIE LEON Case type SW is performed by [place], [place]; all other case types are performed by [facility], [place], [place] SURGICAL PATHOLOGY & NON-GYNECOLOGIC CYTOPATHOLOGY REPORT DIAGNOSIS BREAST, RIGHT, CORE NEEDLE BIOPSY: - FIBROCYSTIC CHANGES (SEE MICROSCOPIC). Specimen Description: Right breast mass, in formalin at 2 p.m. Operative Procedure: Right breast ultrasound-guided biopsy. Patient Information/Histo ry/Diagnosis: Six-mm nearly anechoic focus in medial breast, resolved after one pass; probable cyst. Gross: Received in a single container labeled Britney Lara, right breast mass is a 1.7 cm long x 0.5 cm diameter core of yellow-alford fibrofatty tissue. The specimen is submitted entirely in cassette A1. [facility] 12.02.2008 10:43 am Microscopic: The slides are labeled [id number] Deborah A. The biopsy contains a tight cluster of cysts lined by metaplastic apocrine epithelium. There is no evidence of atypia or proliferative change. COMMENT: Certain proliferative lesions identified in breast biopsies are associated with an increased relative risk for the development of invasive carcinoma. According to data at this time, there is no increased relative risk (compared to the risk for women who have not had a breast biopsy) for patients whose biopsies contain: adenosis; duct ectasia; fibrosis; fibroadenoma (without complex features); mild hyperplasia without atypia; cysts; apocrine or squamous metaplasia. Reference: Arch Pathol Lab Med 1998;122:1053-105 5. PHILLIP/JUDITH 12.03.2008 10:26 am Staging Form: No ELECTRONIC SIGNATURE FOR AMELIA KUMAR M.D.- 12/03/08 04:32 pm [facility] 12/01/2008 5:00 PM CDT us Sandie Leon MD PATHOLOGY/CYTOLOGY ORDERA REECE Final Result [facility] CLIA# [id number] [address] [place] [address] * MAMMO DIGITAL DIAG UNI RIGHT (12/01/2008 2:33 PM CDT) Anatomical Region Laterality Modality Breast Right Other 12/01/2008 2:33 PM CDT Narrative 12/02/2008 9:51 AM CDT [facility] [address] [place], [place] [address] Admit Date: 12/01/2008 MARCO BRITNEY Saurabh Sex: F Admit Prov: [id number] -DOCTOR, NOT ONSTAFF Date: 1950 Primary Care Prov: JONES JOSE GUADALUPE L CMRN: [id number] Room: MARANDA SSN: [id number] IMAGING SERVICES Ordering Prov: DOCTOR, NOT ONSTAFF Accession Number: [id number] Interpretation Ultrasound core biopsy of the right breast with microclip placement Right unilateral full field digital mammogram History: Suspicious hypoechoic nodular densities in the medial right breast. Patient presents for ultrasound guided core biopsy. Comparison is made to previous studies of November 2008, October 2007, September 2006 and October 2005. Procedure and Findings: The risks and benefits of the procedure were explained to the patient and informed consent was obtained. The patient was placed on the ultrasound stretcher in supine positioning and scanned through the medial right breast to determine ideal approach. The skin surface was prepped and draped in usual sterile fashion. 1% lidocaine was used for local anesthesia and 2% lidocaine containing epinephrine was used for deeper anesthetic. A small skin jazzy was made with 11 blade scalpel. Under ultrasound guidance a 10-gauge hand-held vacuum assisted core biopsy probe was inserted from a medial approach and a single core biopsy specimen was obtained. The small hypoechoic lesion completely resolved after the single core biopsy pass and no significant residual sonographic abnormality was present. A microclip is placed in the biopsy bed under ultrasound guidance. Manual pressure was held until hemostasis was achieved. The skin jazzy with closed with Dermabond and a Steri-Strip. The patient received written and verbal postprocedure instructions. She tolerated the procedure well and no significant complications were experienced. A two view mammogram of the right breast confirmed resolution of the small nodular density in the medial right breast. This is replaced by a biopsy clip. The patient left our department in good condition. Conclusion: Technically successful ultrasound guided core biopsy of the nodular density in the medial right breast as described. Tissue diagnosis pending. This most likely represents focal fibrocystic change or a small cyst. Assessment BIRADS: Post procedure mammograms for marker placement Recommendation: No recommendation required Dictated by: SANDIE LEON Electronically signed by: SANDIE LEON 12/02/2008 09:50 Transcribed: 12/02/2008 08:43 AMK Procedure Note Sandie Leon MD - 12/02/[address] [address] Admit Date: 12/01/2008 BRITNEY LARA Sex: F Admit Prov: [id number] -DOCTOR, NOT ONSTAFF Date:1950 Primary Care Prov: JOSE GUADALUPE JONES CMRN: [id number] Room: MARANDA SSN: [id number] IMAGING SERVICES Ordering Prov: DOCTOR, NOT ONSTAFF Interpretation Ultrasound core biopsy of the right breast with microclip placement Right unilateral full field digital mammogram History: Suspicious hypoechoic nodular densities in the medialright breast. Patient presents for ultrasound guided core biopsy. Comparison is made to previous studies of November 2008, October 2007,September 2006 and October 2005. Procedure and Findings: The risks and benefits of the procedurewere explained to the patient and informed consent was obtained. Thepatient was placed on the ultrasound stretcher in supine positioning andscanned through the medial right breast to determine ideal approach. Theskin surface was prepped and draped in usual sterile fashion. 1% lidocainewas used for local anesthesia and 2% lidocaine containing epinephrine wasused for deeper anesthetic. A small skin jazzy was made with 11 bladescalpel. Under ultrasound guidance a 10-gauge hand-held vacuum assisted corebiopsy probe was inserted from a medial approach and a single core biopsyspecimen was obtained. The small hypoechoic lesion completely resolved afterthe single core biopsy pass and no significant residual sonographicabnormality was present. A microclip is placed in the biopsy bed underultrasound guidance. Manual pressure was held until hemostasis was achieved. Theskin jazzy with closed with Dermabond and a Steri-Strip. The patientreceived written and verbal postprocedure instructions. She tolerated theprocedure well and no significant complications were experienced. A two view mammogram of the right breast confirmed resolution of thesmall nodular density in the medial right breast. This is replaced by abiopsy clip. The patient left our department in good condition. Conclusion: Technically successful ultrasound guided core biopsy ofthe nodular density in the medial right breast as described. Tissuediagnosis pending. This most likely represents focal fibrocystic change or asmall cyst. Assessment BIRADS: Post procedure mammograms for marker placement Recommendation: No recommendation required Dictated by: SANDIE LEON Electronically signed by: SANDIE LEON 12/02/2008 09:50 Transcribed: 12/02/2008 08:43 AMK us Not On Staff Doctor MAMMO ORDERABLES Final Resul t * XR CONSULTATION (12/01/2008 2:33 PM CDT) 12/01/2008 2:33 PM CDT Narrative [facility] - 12/08/2008 9:03 AM CDT [address] [address] Admit Date: 12/01/2008 BRITNEY LARA Sex: F Admit Prov: [id number] -DOCTOR, NOT ONSTAFF Date: 1950 Primary Care Prov: JONES, JOSE GUADALUPE L CMRN: [id number] Room: MARANDA SSN: [id number] IMAGING SERVICES Ordering Prov: DOCTOR, NOT ONSTAFF Accession Number: [id number] Addendum Addendum: The ultrasound guided core biopsy of the right breast on 12/01/2008 resulted in histologic diagnosis of fibrocystic changes. There is no evidence of atypia or proliferative change. This is benign and concordant with the imaging findings. Routine followup is recommended. This represents a false positive result. Dictated by: SANDIE LEON Electronically signed by: SANDIE LEON 12/08/2008 09:00 AMK Interpretation Ultrasound core biopsy of the right breast with microclip placement Right unilateral full field digital mammogram History: Suspicious hypoechoic nodular densities in the medial right breast. Patient presents for ultrasound guided core biopsy. Comparison is made to previous studies of November 2008, October 2007, September 2006 and October 2005. Procedure and Findings: The risks and benefits of the procedure were explained to the patient and informed consent was obtained. The patient was placed on the ultrasound stretcher in supine positioning and scanned through the medial right breast to determine ideal approach. The skin surface was prepped and draped in usual sterile fashion. 1% lidocaine was used for local anesthesia and 2% lidocaine containing epinephrine was used for deeper anesthetic. A small skin jazzy was made with 11 blade scalpel. Under ultrasound guidance a 10-gauge hand-held vacuum assisted core biopsy probe was inserted from a medial approach and a single core biopsy specimen was obtained. The small hypoechoic lesion completely resolved after the single core biopsy pass and no significant residual sonographic abnormality was present. A microclip is placed in the biopsy bed under ultrasound guidance. Manual pressure was held until hemostasis was achieved. The skin jazzy with closed with Dermabond and a Steri-Strip. The patient received written and verbal postprocedure instructions. She tolerated the procedure well and no significant complications were experienced. A two view mammogram of the right breast confirmed resolution of the small nodular density in the medial right breast. This is replaced by a biopsy clip. The patient left our department in good condition. Conclusion: Technically successful ultrasound guided core biopsy of the nodular density in the medial right breast as described. Tissue diagnosis pending. This most likely represents focal fibrocystic change or a small cyst. Report revised on 12/08/2008 9:00:57 AM by SANDIE LEON Dictated by: SANDIE LEON Electronically signed by: SANDIE LEON 12/02/2008 09:50 Transcribed: 12/02/2008 08:43 AMK Procedure Note Sandie Leon MD - 12/08/2008 [place] [address] [place], [place] [address] Admit Date: 12/01/2008 BRITNEY LARA Sex: F Admit Prov: [id number] -IZA WILKSTAMARISA Date:1950 Primary Care Prov: JOSE GUADALUPE JONES CMRN: [id number] Room: [facility] SSN: [address] [place] [address] IMAGING SERVICES Ordering Prov: IZA WILKS Addendum Addendum: The ultrasound guided core biopsy of the right breast on 12/01/2008 resulted in histologic diagnosis of fibrocystic changes.There is no evidence of atypia or proliferative change. This is benign and concordant with the imaging findings. Routine followup isrecommended. This represents a false positive result. Dictated by: SANDIE LEON Electronically signed by: SANDIE LEON 12/08/2008 09:00 AMK Interpretation Ultrasound core biopsy of the right breast with microclip placement Right unilateral full field digital mammogram History: Suspicious hypoechoic nodular densities in the medialright breast. Patient presents for ultrasound guided core biopsy. Comparison is made to previous studies of November 2008, October 2007,September 2006 and October 2005. Procedure and Findings: The risks and benefits of the procedurewere explained to the patient and informed consent was obtained. Thepatient was placed on the ultrasound stretcher in supine positioning andscanned through the medial right breast to determine ideal approach. Theskin surface was prepped and draped in usual sterile fashion. 1% lidocainewas used for local anesthesia and 2% lidocaine containing epinephrine wasused for deeper anesthetic. A small skin jazzy was made with 11 bladescalpel. Under ultrasound guidance a 10-gauge hand-held vacuum assisted corebiopsy probe was inserted from a medial approach and a single core biopsyspecimen was obtained. The small hypoechoic lesion completely resolved afterthe single core biopsy pass and no significant residual sonographicabnormality was present. A microclip is placed in the biopsy bed underultrasound guidance. Manual pressure was held until hemostasis was achieved. Theskin jazzy with closed with Dermabond and a Steri-Strip. The patientreceived written and verbal postprocedure instructions. She tolerated theprocedure well and no significant complications were experienced. A two view mammogram of the right breast confirmed resolution of thesmall nodular density in the medial right breast. This is replaced by abiopsy clip. The patient left our department in good condition. Conclusion: Technically successful ultrasound guided core biopsy ofthe nodular density in the medial right breast as described. Tissuediagnosis pending. This most likely represents focal fibrocystic change or asmall cyst. Report revised on 12/08/2008 9:00:57 AM by SANDIE LEON Dictated by: SANDIE LEON Electronically signed by: SANDIE LEON 12/02/2008 09:50 Transcribed: 12/02/2008 08:43 AMK us Not On Staff Doctor DIAGNOSTIC IMAGING ORDERABLE S Edited [facility] CLIA# [id number] [address] [place] [address] * US GUIDE NEEDLE PLACEMENT (12/01/2008 2:32 PM CDT) Anatomical Region Laterality Modality Other 12/01/2008 2:32 PM CDT Narrative 12/02/2008 9:51 AM CDT [facility] [address] [place], [place] [address] Admit Date: 12/01/2008 BRITNEY LARA Sex: F Admit Prov: [id number] -, NOT ONSTAFF Date: 1950 Primary Care Prov: JONES JOSE GUADALUPE L CMRN: [id number] Room: MARANDA SSN: [id number] IMAGING SERVICES Ordering Prov: DOCTOR, NOT ONSTAFF Accession Number: [id number] Interpretation Ultrasound core biopsy of the right breast with microclip placement Right unilateral full field digital mammogram History: Suspicious hypoechoic nodular densities in the medial right breast. Patient presents for ultrasound guided core biopsy. Comparison is made to previous studies of November 2008, October 2007, September 2006 and October 2005. Procedure and Findings: The risks and benefits of the procedure were explained to the patient and informed consent was obtained. The patient was placed on the ultrasound stretcher in supine positioning and scanned through the medial right breast to determine ideal approach. The skin surface was prepped and draped in usual sterile fashion. 1% lidocaine was used for local anesthesia and 2% lidocaine containing epinephrine was used for deeper anesthetic. A small skin jazzy was made with 11 blade scalpel. Under ultrasound guidance a 10-gauge hand-held vacuum assisted core biopsy probe was inserted from a medial approach and a single core biopsy specimen was obtained. The small hypoechoic lesion completely resolved after the single core biopsy pass and no significant residual sonographic abnormality was present. A microclip is placed in the biopsy bed under ultrasound guidance. Manual pressure was held until hemostasis was achieved. The skin jazzy with closed with Dermabond and a Steri-Strip. The patient received written and verbal postprocedure instructions. She tolerated the procedure well and no significant complications were experienced. A two view mammogram of the right breast confirmed resolution of the small nodular density in the medial right breast. This is replaced by a biopsy clip. The patient left our department in good condition. Conclusion: Technically successful ultrasound guided core biopsy of the nodular density in the medial right breast as described. Tissue diagnosis pending. This most likely represents focal fibrocystic change or a small cyst. Dictated by: SANDIE LEON Electronically signed by: SANDIE LEON 12/02/2008 09:50 Transcribed: 12/02/2008 08:43 AMK Procedure Note Sandie Leon MD - 12/02/[address] [address] Admit Date: 12/01/2008 BRITNEY LARA Sex: F Admit Prov: [id number] -IZA WILKSTAMARISA Date:1950 Primary Care Prov: JOSE GUADALUPE JONES CMRN: [id number] Room: MARANDA SSN: [id number] IMAGING SERVICES Ordering Prov: IZA WILKSTAMARISA Interpretation Ultrasound core biopsy of the right breast with microclip placement Right unilateral full field digital mammogram History: Suspicious hypoechoic nodular densities in the medialright breast. Patient presents for ultrasound guided core biopsy. Comparison is made to previous studies of November 2008, October 2007,September 2006 and October 2005. Procedure and Findings: The risks and benefits of the procedurewere explained to the patient and informed consent was obtained. Thepatient was placed on the ultrasound stretcher in supine positioning andscanned through the medial right breast to determine ideal approach. Theskin surface was prepped and draped in usual sterile fashion. 1% lidocainewas used for local anesthesia and 2% lidocaine containing epinephrine wasused for deeper anesthetic. A small skin jazzy was made with 11 bladescalpel. Under ultrasound guidance a 10-gauge hand-held vacuum assisted corebiopsy probe was inserted from a medial approach and a single core biopsyspecimen was obtained. The small hypoechoic lesion completely resolved afterthe single core biopsy pass and no significant residual sonographicabnormality was present. A microclip is placed in the biopsy bed underultrasound guidance. Manual pressure was held until hemostasis was achieved. Theskin jazzy with closed with Dermabond and a Steri-Strip. The patientreceived written and verbal postprocedure instructions. She tolerated theprocedure well and no significant complications were experienced. A two view mammogram of the right breast confirmed resolution of thesmall nodular density in the medial right breast. This is replaced by abiopsy clip. The patient left our department in good condition. Conclusion: Technically successful ultrasound guided core biopsy ofthe nodular density in the medial right breast as described. Tissuediagnosis pending. This most likely represents focal fibrocystic change or asmall cyst. Dictated by: SANDIE LEON Electronically signed by: SANDIE LEON 12/02/2008 09:50 Transcribed: 12/02/2008 08:43 AMK us Not On Staff Doctor US ORDERABLES Final Result documented in this encounter Visit Diagnoses Diagnosis Abnormal mammogram, unspecified documented in this encounter Care Teams Manager Multicultural Relationship Specialty Start Date End Date Jose Guadalupe Jones MD [address] [place] [phone] PCP - General 10/31/05 02/27/22 documented as of this encounter
== END 2025-02-01 10:36 | disposition home or self-care (01) ==
PROVIDERS: Visit Provider Physician Assistant Medical
DX: R74.8 Abnormal levels of other serum enzymes (principal)
CPT/HCPCS: 76705